=== PATIENT | male | born 1980 | race Caucasian/White ===

== ENCOUNTER 2017-09-06 05:28 | Emergency (ER) | payer OTHER ==
[2017-09-06 05:34] VITALS: TEMP 97.3
--- NOTE | 2017-09-06 05:54 | CPEKG ---
Heart Rate: 52 RR Interval: 1154 P-R Interval: 168 QRSD Interval: 98 QT Interval: 476 QTC Interval: 443 P [place]: 12 QRS [place]: -17 T Wave [place]: 12 EKG Severity - OTHERWISE NORMAL ECG - EKG Impression: SINUS RHYTHM EKG Impression: BORDERLINE LEFT AXIS DEVIATION Electronically Signed By: Lisbeth Brownlee 07-Sep-2017 05:34:16
[2017-09-06 06:25] LABS: % IMMATURE GRANULYOCYTES 0.6 % (0.0-1.1); ABSOLUTE IMMATURE GRANULOCYTES 0.04 10^3/uL (0.00-0.10); ADD DIFF? NO; ADD MORPH? NO; ADD SCAN? NO; ATYPICAL LYMPHOCYTE FLAG 0 (0-99); FRAGMENT RBC FLAG 0 (0-99); HEMATOCRIT 50.3 % (40.0-51.0); HEMOGLOBIN 18.2 g/dL (13.7-17.5); LEFT SHIFT FLG 0 (0-99); LIPEMIA HEMOLYSIS FLAG 90 (0-99); MEAN CELL HEMOGLOBIN 29.3 pg (27.9-34.1); MEAN CELL HEMOGLOBIN CONCENTR. 36.2 g/dL (32.4-36.7); MEAN CELL VOLUME 80.9 fL (81.5-99.8); MEAN PLATELET VOLUME 10.1 fL (8.7-11.7); PLATELET CLUMPS FLAG 0 (0-99); PLATELET COUNT 215 10^3/uL (150-400); RED BLOOD CELL COUNT 6.22 10^6/uL (4.40-6.38); RED CELL DISTRIBUTION WIDTH 12.7 % (11.5-15.2)
--- NOTE | 2017-09-06 06:26 | EDPHY ---
H & P Stated Complaint: CP/tightness since 1930 Time Seen by Provider: 09/06/17 05:41 HPI/ROS: HPI The patient presents with chest pain that began at 7:00 p.m. last night and has been present throughout the night. It is associated with a warm and heavy feeling throughout his chest and prevented him from sleeping for most of the night. He awoke at 4:00 a.m. which is very unusual for him with the same pain. He has been unable to sleep since then. Since arrival in the emergency department, his pain is mostly improved. He does not have any shortness of breath, nausea, vomiting, dizziness. He has no prior history of similar pain. REVIEW OF SYSTEMS Constitutional: No fever, no chills. Eyes: No discharge. ENT: No sore throat. Cardiovascular: Positive for chest pain, positive for palpitations. Respiratory: No cough, no shortness of breath. Gastrointestinal: No abdominal pain, no vomiting. Genitourinary: No hematuria. Musculoskeletal: No back pain. Skin: No rashes. Neurological: No headache. PMHx: Healthy Soc Hx: No tobacco use FHx: Father with [place] at age of 60 PHYSICAL General Appearance: Alert, no distress Eyes: Pupils equal and round no pallor or injection ENT, Mouth: Mucous membranes moist Respiratory: There are no retractions, lungs are clear to auscultation Cardiovascular: Regular rate and rhythm Gastrointestinal: Abdomen is soft and non-tender, no masses, bowel sounds normal Neurological: A&O, moves all extremities Skin: Warm and dry, no rashes Musculoskeletal: Neck is supple non tender Extremities: symmetrical, full range of motion Psychiatric: Patient is oriented X 3, there is no agitation Source: Patient Exam Limitations: No limitations - Personal History Current Tetanus/Diphtheria Vaccine: Unsure Current Tetanus Diphtheria and Acellular Pertussis (TDAP): Unsure - Medical/Surgical History Hx Asthma: No Hx Chronic Respiratory Disease: No Hx Diabetes: No Hx Cardiac Disease: No Hx Renal Disease: No Hx Cirrhosis: No Hx Alcoholism: No Hx HIV/AIDS: No Hx Splenectomy or Spleen Trauma: No Other PMH: denies - Social History Smoking Status: Former smoker Constitutional: Initial Vital Signs Temperature (C) 36.3 C 09/06/17 05:31 Heart Rate 54 L 09/06/17 05:31 Respiratory Rate 20 09/06/17 05:31 Blood Pressure 144/96 H 09/06/17 05:31 O2 Sat (%) 98 09/06/17 05:31 O2 Delivery Mode Room Air Allergies/Adverse Reactions: No Known Allergies Allergy (Unverified 09/06/17 05:33) Home Medications: Medication Instructions Recorded NK [No Known Home Meds] 09/06/17 Medical Decision Making - Diagnostics EKG Interpretation: EKG: Complete interpretation has been separately recorded in the [employer] archive. Summary impression: Normal sinus rhythm Imaging Results: Chest x-ray two views shows no cardiomegaly, no infiltrate, no pneumothorax, interpreted by me, radiology interpretation is pending. Differential Diagnosis: This is a 37-year-old male who is healthy who presents with chest pain since 7: 00 p.m. last night with what he describes as a warm and heavy feeling in his chest. It traveled to his left arm transiently. He is feeling much better since his arrival in the emergency department with no ongoing pain. Here, EKG was checked and was unremarkable. Chest x-ray was normal. Labs were checked and demonstrated a slightly elevated troponin level. Patient's heart score is calculated at 1. Over the phone, I consulted with the hospitalist Dr. Chen. We agreed that best course of action is to repeat the troponin in 2 hours given that the patient is low risk, with very marginally elevated troponin. I have discussed this with the patient, he would like to be discharged from the emergency department. He says he feels fine now and is feeling much better than earlier. He has a very important meeting for work in about 1 hour that he cannot miss. I explained to him that without repeating the blood test or doing other testing we cannot completely rule out ACS. He accepts this risk of missed heart attack, possible heart failure and even . He is aware that he needs to return to the emergency department immediately if he has any return of his chest pain or any other symptoms that are worrisome. I have consulted with Dr. Valdez of Cardiology over the phone and he concurs that the patient should be admitted for evaluation for ACS and provocative testing. He agrees that the patient could suffer serious consequences if he leaves the hospital against medical advice. The patient can make an appointment in his clinic for follow-up if he wishes. I have reiterated all this information to the patient and he would still like to be discharged from the hospital. The patient will complete an AMA form. - Data Points Laboratory Results: Laboratory Results 09/06/17 05:49 09/06/17 05:49 09/06/17 09/06/17 05:49 05:49 WBC 6.74 10^3/uL 10^3/uL (3.80-9.50) RBC 6.22 10^6/uL 10^6/uL (4.40-6.38) Hgb 18.2 g/dL H g/dL (13.7-17.5) Hct 50.3 % % (40.0-51.0) MCV 80.9 fL L fL (81.5-99.8) MCH 29.3 pg pg (27.9-34.1) MCHC 36.2 g/dL g/dL (32.4-36.7) RDW 12.7 % % (11.5-15.2) Plt Count 215 10^3/uL 10^3/uL (150-400) MPV 10.1 fL fL (8.7-11.7) Neut % (Auto) 58.5 % % (39.3-74.2) Lymph % (Auto) 30.4 % % (15.0-45.0) [place] % (Auto) 8.0 % % (4.5-13.0) Eos % (Auto) 1.9 % % (0.6-7.6) Baso % (Auto) 0.6 % % (0.3-1.7) Nucleat RBC Rel Count 0.0 % % (0.0-0.2) Absolute Neuts (auto) 3.94 10^3/uL 10^3/uL (1.70-6.50) Absolute Lymphs (auto) 2.05 10^3/uL 10^3/uL (1.00-3.00) Absolute Monos (auto) 0.54 10^3/uL 10^3/uL (0.30-0.80) Absolute Eos (auto) 0.13 10^3/uL 10^3/uL (0.03-0.40) Absolute Basos (auto) 0.04 10^3/uL 10^3/uL (0.02-0.10) Absolute Nucleated RBC 0.00 10^3/uL 10^3/uL (0-0.01) Immature Gran % 0.6 % % (0.0-1.1) Immature Gran # 0.04 10^3/uL 10^3/uL (0.00-0.10) Sodium 143 mEq/L mEq/L (134-144) Potassium 3.9 mEq/L mEq/L (3.5-5.2) Chloride 102 mEq/L mEq/L (97-110) Carbon Dioxide 25 mEq/l mEq/l (22-31) Anion Gap 16 mEq/L mEq/L (8-16) BUN 14 mg/dL mg/dL (7-23) Creatinine 1.1 mg/dL mg/dL (0.7-1.3) Estimated GFR > 60 Glucose 80 mg/dL mg/dL (70-100) Calcium 10.4 mg/dL mg/dL (8.5-10.4) Troponin I 0.037 ng/mL H ng/mL (0.000-0.034) Departure - Departure Disposition: Home, Routine, Self-Care Clinical Impression: Elevated troponin Chest pain Qualifiers: Chest pain type: unspecified Qualified Code(s): R07.9 - Chest pain, unspecified Condition: Good Instructions: Chest Pain (ED) Additional Instructions: If your chest pain returns, you should return to the emergency department immediately. Otherwise please call the graduate civil engineer for follow-up in the next 1 day. An outpatient stress test can be performed. Referrals: Cristofer Stafford MD [Primary Care Provider] - As per Instructions Bj Valdez MD [Medical Doctor] - As per Instructions
[2017-09-06 06:33] LABS: ANION GAP 16 mEq/L (8-16); CALCIUM 10.4 mg/dL (8.5-10.4); CARBON DIOXIDE 25 mEq/l (22-31); CHLORIDE 102 mEq/L (97-110); CREATININE 1.1 mg/dL (0.7-1.3); GLOMERULAR FILTRATION RATE > 60; GLUCOSE 80 mg/dL (70-100); POTASSIUM 3.9 mEq/L (3.5-5.2); SODIUM 143 mEq/L (134-144)
[2017-09-06 06:44] LABS: TROPONIN I 0.037 ng/mL (0.000-0.034)
[2017-09-06 07:45] VITALS: BP 121/80; PULSE 58; RESP 16; O2SAT 97
== END 2017-09-06 07:42 | disposition left against medical advice (07) ==
DX: R07.9 Chest pain, unspecified (principal); R79.89 Other specified abnormal findings of blood chemistry; Z87.891 Personal history of nicotine dependence